=== PATIENT | male | born 1990 | race Caucasian/White ===

== ENCOUNTER → 2017-12-14 | Outpatient (CLI) | payer OTHER | LOC: CAT 15:03 | DX: Z13.6 Encounter for screening for cardiovascular disorders (principal); E78.00 Pure hypercholesterolemia, unspecified ==

== ENCOUNTER 2019-03-25 03:38 | Emergency (ER) | payer OTHER ==
[~2019-03-25] VITALS: Ht 170.2 cm; Wt 99.8 kg
[2019-03-25] MEDS ORDERED: AMLODIPINE BESY10 MG PO (03:44)
[2019-03-25] MEDS ORDERED: ATORVASTATIN CA10 MG PO (03:45)
[2019-03-25 04:31] VITALS: BP 132/78
== END 2019-03-25 04:31 | disposition home or self-care (01) ==
LOC: ER 03:38
DX: R10.10 Upper abdominal pain, unspecified (principal); I10 Essential (primary) hypertension

== ENCOUNTER → 2020-07-04 | Outpatient (CLI) | payer OTHER ==
[~2020-07-04] MED LIST: AMLODIPINE BESY10 MG PO; ATORVASTATIN CA10 MG PO
== END ==
LOC: SJCVCIMAG 13:52
PROVIDERS: ATTEND Internal Medicine
DX: I11.9 Hypertensive heart disease without heart failure (principal); E78.5 Hyperlipidemia, unspecified; Z82.49 Family history of ischemic heart disease and other diseases of the circulatory system